=== PATIENT | female | born 1960 | race Caucasian/White ===

== ENCOUNTER → 2018-01-02 | Day surgery (SDC) | payer OTHER ==
[2017-12-20 15:47] VITALS: Ht 160 cm; Wt 81.8 kg
[~2018-01-02] VITALS: Ht 160 cm; Wt 81.8 kg
[~2018-01-02] MED LIST: ASCA500 PO; CHOL1TAB42 PO; CYAN500T PO; LIDOCAINE HCL 2% 2 ML VIAL (20MG/ML) ONE; MIDAZOLAM HCL 1 MG/ML 2ML VIAL ONE; MISCCAP80 PO; MULT-506 PO; ONDANSETRON INJ 2 MG/ML 2 ML VIAL ONE; PANT40TA PO; PROPOFOL IV EMULSION 10 MG/ML 20 ML VIAL IV ONE; RANI150T85 PO; SODIUM CHLORIDE 0.9% 500ML 500 ML IV ONE
[2018-01-02 14:31] VITALS: TEMP 36.7
--- NOTE | 2018-01-02 15:23 | Endo History and Physical ---
History & Physical Date of Service: Jan 02, 2018. Chief Complaint: GERD Referring Physician: Curt History of Present Illness 57 yo CF who presents for EGD secondary to GERD. Past Surgical History Hx Cardiac Surgery: No Hx Internal Defibrillator: No Hx Pacemaker: No Hx Abdominal Surgery: No Hx of Implantable Prosthesis: No Hx Post-Op Nausea and Vomiting: No Hx Cancer Surgery: No Hx Thoracic Surgery: No Hx Orthopedic: No Hx Urinary Tract Surgery: No Family History None Social History Smoking Status: Never Smoker Hx Substance Use: No Hx Alcohol Use: No Allergies Coded Allergies: Penicillins (Verified Allergy, Severe, MOUTH SWELLING, 12/20/17) Acetaminophen (Unverified Allergy, Intermediate, DELIRIUM, 01/02/18) Clemastine (Unverified Allergy, Intermediate, ANAPHYLAXIS, 01/02/18) Latex1 -Allergic Contact Dermititis (Verified Allergy, Intermediate, ., 12/20/17) Oxycodone (Unverified Allergy, Intermediate, DELIRIUM, 01/02/18) Phenylpropanolamine (Unverified Allergy, Intermediate, ANAPHYLAXIS, ) Current Medications Reported Home Medications Medications Dose Route/Sig Max Daily Dose Days Date Category Multivitamin (Multivitamins) Tab 1 Tab PO QAM 12/20/17 Reported Probiotic (Probiotic Product) 1 Cap Cap 1 Cap PO HS 12/20/17 Reported Vitamin B-12 (Cyanocobalamin) 500 Mcg Tab 500 Mcg PO QAM 12/20/17 Reported Vitamin D (Cholecalciferol) 5,000 Unit Tab 5,000 Unit PO QAM 12/20/17 Reported Vitamin C (Ascorbic Acid) 500 Mg Tab 1,000 Mg PO QAM 12/20/17 Reported Zantac (Ranitidine HCl) 150 Mg Tab 150 Mg PO HS 12/20/17 Reported Protonix (Pantoprazole Sodium) 40 Mg Tab 40 Mg PO QAM 12/20/17 Reported Vital Signs Weight (Kilograms): 81.82 Height (Feet): 5 Height (Inches): 3 Date Time Temp Pulse Resp B/P (MAP) Pulse Ox O2 Delivery O2 Flow Rate FiO2 01/02/18 14:31 36.7 75 20 137/63 (87) 97 Room Air Physical Exam General Appearance: WD/WN, no apparent distress Respiratory/Chest: Auscultation: breath sounds normal Cardiovascular: Heart Auscultation: RRR Abdomen: Bowel Sounds: normal Inspection & Palpation: soft, non-distended, no tenderness, guarding & rebound Assessment and Plan Assessment: 57 yo CF who presents for EGD secondary to GERD. Plan: Proceed with EGD.
--- NOTE | 2018-01-02 16:18 | Discharge Instructions ---
Endoscopy Patient Instructions Date / Procedure(s) Performed Jan 02, 2018. EGD Allergy Information Coded Allergies: Penicillins (Verified Allergy, Severe, MOUTH SWELLING, 12/20/17) Acetaminophen (Unverified Allergy, Intermediate, DELIRIUM, 01/02/18) Clemastine (Unverified Allergy, Intermediate, ANAPHYLAXIS, 01/02/18) Latex1 -Allergic Contact Dermititis (Verified Allergy, Intermediate, ., 12/20/17) Oxycodone (Unverified Allergy, Intermediate, DELIRIUM, 01/02/18) Phenylpropanolamine (Unverified Allergy, Intermediate, ANAPHYLAXIS, ) Discharge Date / Findings Jan 02, 2018. Hiatal hernia Medication Instructions OK to resume all medications today as prescribed Reported Home Medications Medications Dose Route/Sig Max Daily Dose Days Date Category Multivitamin (Multivitamins) Tab 1 Tab PO QAM 12/20/17 Reported Probiotic (Probiotic Product) 1 Cap Cap 1 Cap PO HS 12/20/17 Reported Vitamin B-12 (Cyanocobalamin) 500 Mcg Tab 500 Mcg PO QAM 12/20/17 Reported Vitamin D (Cholecalciferol) 5,000 Unit Tab 5,000 Unit PO QAM 12/20/17 Reported Vitamin C (Ascorbic Acid) 500 Mg Tab 1,000 Mg PO QAM 12/20/17 Reported Zantac (Ranitidine HCl) 150 Mg Tab 150 Mg PO HS 12/20/17 Reported Protonix (Pantoprazole Sodium) 40 Mg Tab 40 Mg PO QAM 12/20/17 Reported Provider Instructions Activity Restrictions - No exercising or heavy lifting for 24 hours. - Do not drink alcohol the day of the procedure. - Do not drive a car or operate machinery until the day after the procedure. - Do not make any important decisions or sign important papers in 24 hours after the procedure. Following Day: - Return to full activity which may include returning to work/school. Diet Start your diet with liquids and light foods (jello, soup, juice, toast). Then eat your usual diet if not nauseated. Treatment For Common After Affects For mild abdominal pain, bloating, or excessive gas: - Rest - Eat lightly - Lie on right side Follow-Up Information Follow-up with Curt as scheduled Anesthesia Information What You Should Know You have had a procedure that required some medicine to reduce anxiety and discomfort. This treatment is called moderate sedation. After receiving the treatment, you may be sleepy, but you will be able to breathe on your own. The effects of the treatment may last for several hours. Follow these instructions along with Activity/Diet recommendations noted above: * Do NOT do anything where dizziness or clumsiness would be dangerous. * Rest quietly at home today, then you can be up and about tomorrow. * Have a responsible person stay with you the rest of today. * You may have had an I.V. today. If so, you may take the dressing off later today. Recommendations Call your doctor if: * Trouble breathing * Continuous vomiting for more than 24 hours * Temperature above 101 degrees * Severe abdominal pain or bloating * Pain not relieved by pain medicine ordered * There is increased drainage or redness from any incision * A large amount of rectal bleeding greater than 2-3 tablespoons. (If you had a polyp/s removed or have hemorrhoids, a small amount of blood - from the rectum is to be expected.) * You have any unanswered questions or concerns. IN THE EVENT OF A SERIOUS EMERGENCY, GO TO THE NEAREST EMERGENCY ROOM Your discharge instructions were prepared by provider Miki Wheatley. Patient Instructions Signature Page Akua Andrade Patient (or Guardian) Signature/Date: I have read and understand the instructions given to me by my caregivers. Caregiver/RN/Doctor Signature/Date: The above-named patient and/or guardian has received patient instructions on this date. + Original Patient Signature Page (only) stays with chart. Please make copy for patient.
--- NOTE | 2018-01-02 16:21 | GI REPORT ---
Procedure Date: 01/02/2018 3:48 PM THIS REPORT HAS BEEN AMENDED Addendum Number: 1 Addendum Date: 01/07/2018 3:49:12 PM No speciemens were collected during this procedure, and therefore, no pathology is pending. Procedure: Upper GI endoscopy Indications: Gastro-esophageal reflux disease Medicines: Monitored Anesthesia Care Complications: No immediate complications. Estimated Blood Loss: Estimated blood loss: none. Procedure: Pre-Anesthesia Assessment: - Prior to the procedure, a History and Physical was performed, and patient medications and allergies were reviewed. The patient's tolerance of previous anesthesia was also reviewed. The risks and benefits of the procedure and the sedation options and risks were discussed with the patient. All questions were answered, and informed consent was obtained. Prior Anticoagulants: The patient has taken no previous anticoagulant or antiplatelet agents. ASA Grade Assessment: II - A patient with mild systemic disease. After reviewing the risks and benefits, the patient was deemed in satisfactory condition to undergo the procedure. After obtaining informed consent, the endoscope was passed under direct vision. Throughout the procedure, the patient's blood pressure, pulse, and oxygen saturations were monitored continuously. The scope was introduced through the mouth, and advanced to the second part of duodenum. The upper GI endoscopy was accomplished without difficulty. The patient tolerated the procedure well. Findings: The examined esophagus was normal. A small hiatal hernia was present. The examined duodenum was normal. Impression: - Normal esophagus. - Small hiatal hernia. - Normal examined duodenum. - No specimens collected. Recommendation: - Resume previous diet. - Continue present medications. - Await pathology results. - Return to GI office as previously scheduled. Miki Gongora Dioni, 01/02/2018 4:21:06 PM This report has been signed electronically. Note Initiated On: 01/02/2018 3:48 PM I attest to the content of the Intraoperative Record and orders documented therein, exceptions below Miki Gongora Dioni, DO 01/07/2018 3:49:37 PM This report has been signed electronically.
--- NOTE | 2018-01-02 16:36 | Anesthesiology Progress Note ---
Anesthesia Post Op Note Date & Time Jan 02, 2018 at 16:36 Vital Signs Pain Intensity: 0 Vital Signs Past 12 Hours Date Time Temp Pulse Resp B/P (MAP) Pulse Ox O2 Delivery O2 Flow Rate FiO2 01/02/18 16:22 78 18 142/83 (102) 95 Room Air 01/02/18 16:07 90 16 109/56 (73) 97 Room Air 01/02/18 14:31 36.7 75 20 137/63 (87) 97 Room Air Notes Mental Status: alert / awake / arousable, participated in evaluation Pt Amnestic to Procedure: Yes Nausea / Vomiting: adequately controlled Pain: adequately controlled Airway Patency, RR, SpO2: stable & adequate BP & HR: stable & adequate Hydration State: stable & adequate Anesthetic Complications: no major complications apparent
[2018-01-02 16:37] VITALS: BP 127/64; PULSE 52; O2SAT 99
== END | disposition home or self-care (01) ==
LOC: C.GI 13:51
PROVIDERS: ATTEND Internal Medicine
DX: K21.9 Gastro-esophageal reflux disease without esophagitis (principal); K44.9 Diaphragmatic hernia without obstruction or gangrene; Z88.0 Allergy status to penicillin; Z91.040 Latex allergy status; Z88.5 Allergy status to narcotic agent; Z68.31 Body mass index [BMI] 31.0-31.9, adult; E66.9 Obesity, unspecified